=== PATIENT | male | born 1970 ===

== ENCOUNTER 2017-07-05 18:14 | Emergency (ER) | payer OTHER ==
[2017-07-05 18:14] VITALS: BMI 38.0
[2017-07-05 18:23] VITALS: PULSE 92; RESP 18; TEMP 98.8; O2SAT 99
--- NOTE | 2017-07-05 18:47 | ED PDOC ---
HPI: Wound Care - HPI Time Seen by Provider: 07/05/17 18:26 Chief Complaint (Nursing): Abnormal Skin Integrity Chief Complaint (Provider): abscess History Per: Patient Exam Limitations: no limitations Additional Complaint(s): 46yo M in ED for eval of abscess to right sided inner groin x couple of days state that he tried to "pop it" himself and did a sitz bath however it did not drain, was more painful and began developing chills. no fever. Past Medical History Reviewed: Historical Data, Nursing Documentation, Vital Signs Vital Signs: Last Vital Signs Temp 98.8 F 07/05/17 18:21 Pulse 92 H 07/05/17 18:21 Resp 18 07/05/17 18:21 BP Pulse Ox 99 07/05/17 18:21 - Medical History PMH: Diabetes (type II), Fractures (fx to right ankle this year around December 2014 ), HTN, Hypercholesterolemia, Hyperlipidemia Denies: Arthritis, CHF, COPD, HIV, Hypothyroidism, Chronic Kidney Disease, Rheumatoid Arthritis - Surgical History Surgical History: Denies: CABG - Family History Family History: States: Unknown Family Hx - Home Medications Home Medications: Ambulatory Orders Medication Instructions Recorded Atorvastatin [Lipitor] 10 mg PO DAILY 03/04/15 Lisinopril 2.5 mg PO DAILY 03/04/15 Metformin HCl [Metformin] 850 mg PO DAILY #30 tab 08/06/15 Cephalexin [Keflex] 500 mg PO TID 11/10/15 Oxycodone HCl/Acetaminophen 5 - 325 mg PO Q6 PRN 11/10/15 [Percocet 5-325 mg Tablet] Ibuprofen [Motrin] 600 mg PO TID 7 Days tab 12/02/15 Amoxicillin/Clavulanate [Augmentin 1 tab PO BID #14 tab 03/18/16 875 MG-125 MG] Sulfamethoxazole/Trimethoprim 1 tab PO BID #14 tab 03/18/16 [Bactrim DS 800 mg-160 mg] oxyCODONE/Acetaminophen [Percocet 1 ea PO Q6H PRN #8 tab 03/18/16 5/325 mg Tab] Amoxicillin/Clavulanate [Augmentin 1 tab PO BID 7 Days tab 07/09/16 875 MG-125 MG Tab] Sulfamethoxazole/Trimethoprim 1 tab PO BID 7 Days tab 07/09/16 [Bactrim DS 800 mg-160 mg] Sulfamethoxazole/Trimethoprim 1 tab PO BID #14 tab 07/05/17 [Bactrim DS 800 mg-160 mg] - Allergies Allergies/Adverse Reactions: Allergies Allergy/AdvReac Type Severity Reaction Status Date / Time No Known Allergies Allergy Verified 12/02/15 09:26 Review of Systems ROS Statement: Except As Marked, All Systems Reviewed And Found Negative Constitutional: Positive for: Chills. Negative for: Fever Genitourinary Male: Positive for: Other (groin pain) Physical Exam - Reviewed Nursing Documentation Reviewed: Yes Vital Signs Reviewed: Yes - Physical Exam Appears: Positive for: Well, Non-toxic, No Acute Distress Skin: Positive for: Normal Color, Warm, DRY Cardiovascular/Chest: Positive for: Regular Rate, Rhythm Respiratory: Positive for: CNT, Normal Breath Sounds Extremity: Positive for: Other (right inner groin-lesion 2x4 flucutant tendern erythema no surronding erythema. ) Neurologic/Psych: Positive for: Alert, Oriented - ECG O2 Sat by Pulse Oximetry: 99 Procedure: Wound Repair - Time Performed Time Performed: 18:48 - Time Out Time Out: Side verified (PT signed consent. made aware of scar potential. agrees to abscess drainage. ), Site verified, Patient ID confirmed, Sterile procedures obs. - Consent Obtained Consent obtained: Written - Performed by Performed by: Mid-level Provider - Indications Indication(s):: Other (abscess) - Patient tolerated procedure Patient Tolerated Procedure:: Well (#11 blade used .5cm incision created at [facility] blood/pus draiange>5cc drainage. no complications. packing placed.) Medical Decision Making Medical Decision Making: pt advised to have f.u in 3 days for packing removal . rx for bactirm and advised to use warm compress to area. VS stable. Disposition - Clinical Impression Clinical Impression: Abscess - Patient ED Disposition Is Patient to be Admitted: No Counseled Patient/Family Regarding: Diagnosis, Need For Followup, Rx Given - Disposition Referrals: [facility] [Outside] Disposition: Routine/Home Disposition Time: 18:51 Condition: STABLE Prescriptions: Sulfamethoxazole/Trimethoprim [Bactrim DS 800 mg-160 mg] 1 tab PO BID #14 tab Instructions: Abscess Incision and Drainage (ED), Abscess (ED) Forms: [employer] ED School/Work Excuse
[2017-07-05 19:04] VITALS: BP 138/88
== END 2017-07-05 19:04 | disposition home or self-care (01) ==
LOC: H.ER 18:14
DX: L02.214 Cutaneous abscess of groin (principal); E11.9 Type 2 diabetes mellitus without complications; E78.00 Pure hypercholesterolemia, unspecified; I10 Essential (primary) hypertension; Z79.84 Long term (current) use of oral hypoglycemic drugs

== ENCOUNTER 2018-08-16 10:37 | Emergency (ER) | payer SELFPAY ==
[2018-08-16 10:37] VITALS: BMI 38.0
[2018-08-16 10:52] VITALS: TEMP 98.3
--- NOTE | 2018-08-16 11:54 | ED PDOC ---
HPI: Back Time Seen by Provider: 08/16/18 11:20 Chief Complaint (Nursing): Back Pain Chief Complaint (Provider): Back Pain History Per: Patient History/Exam Limitations: no limitations Onset/Duration Of Symptoms: Days (x1 year) Current Symptoms Are (Timing): Constant Additional Complaint(s): Chinedu Gillespie Jr is a 48 year old male with a past medical history of HTN and diabetes, who presents to the emergency department complaining of right sided back pain that is non-radiating, constant for x1 year. Patient states that he goes to clinic and that he has never mentioned it to the doctor because he thought it would go away by itself. He states his next appointment is September 10, 2018. Patient denies nausea, vomiting, urinary symptoms including hematuria and burning sensation on urinating, fever, chills, rash or cough. PMD: no provider Past Medical History Reviewed: Historical Data, Nursing Documentation, Vital Signs Vital Signs: Last Vital Signs Temp 98.3 F 08/16/18 10:50 Pulse 67 08/16/18 10:50 Resp 18 08/16/18 10:50 BP 125/86 08/16/18 10:50 Pulse Ox 95 08/16/18 10:50 - Medical History PMH: Diabetes (type II), Fractures (fx to right ankle this year around December 2014), HTN, Hypercholesterolemia, Hyperlipidemia Denies: Arthritis, CHF, COPD, HIV, Hypothyroidism, Chronic Kidney Disease, Rheumatoid Arthritis - Surgical History Surgical History: Denies: CABG - Family History Family History: States: Unknown Family Hx - Social History Current smoker - smoking cessation education provided: Yes Alcohol: Occasional Drugs: Denies - Home Medications Home Medications: Ambulatory Orders Medication Instructions Recorded Atorvastatin [Lipitor] 10 mg PO DAILY 03/04/15 Lisinopril 2.5 mg PO DAILY 03/04/15 Metformin HCl [Metformin] 850 mg PO DAILY #30 tab 08/06/15 Cephalexin [Keflex] 500 mg PO TID 11/10/15 Oxycodone HCl/Acetaminophen 5 - 325 mg PO Q6 PRN 11/10/15 [Percocet 5-325 mg Tablet] Ibuprofen [Motrin] 600 mg PO TID 7 Days tab 12/02/15 Amoxicillin/Clavulanate [Augmentin 1 tab PO BID #14 tab 03/18/16 875 MG-125 MG] Sulfamethoxazole/Trimethoprim 1 tab PO BID #14 tab 03/18/16 [Bactrim DS 800 mg-160 mg] oxyCODONE/Acetaminophen [Percocet 1 ea PO Q6H PRN #8 tab 03/18/16 5/325 mg Tab] Amoxicillin/Clavulanate [Augmentin 1 tab PO BID 7 Days tab 07/09/16 875 MG-125 MG Tab] Sulfamethoxazole/Trimethoprim 1 tab PO BID 7 Days tab 07/09/16 [Bactrim DS 800 mg-160 mg] Sulfamethoxazole/Trimethoprim 1 tab PO BID #14 tab 07/05/17 [Bactrim DS 800 mg-160 mg] Cyclobenzaprine [Cyclobenzaprine 10 mg PO TID #30 tab 08/16/18 HCl] Naproxen [Naprosyn] 500 mg PO BID PRN #20 tablet 08/16/18 - Allergies Allergies/Adverse Reactions: Allergies Allergy/AdvReac Type Severity Reaction Status Date / Time No Known Allergies Allergy Verified 08/16/18 10:59 Review of Systems ROS Statement: Except As Marked, All Systems Reviewed And Found Negative Constitutional: Negative for: Fever, Chills Respiratory: Negative for: Cough Gastrointestinal: Negative for: Nausea, Vomiting, Constipation Genitourinary Male: Negative for: Dysuria, Frequency, Incontinence, Hematuria, Other (burning sensation on urination) Musculoskeletal: Positive for: Back Pain Skin: Negative for: Rash Physical Exam - Reviewed Nursing Documentation Reviewed: Yes Vital Signs Reviewed: Yes - Physical Exam Appears: Positive for: Non-toxic, No Acute Distress Head Exam: Positive for: ATRAUMATIC, NORMOCEPHALIC Skin: Positive for: Normal Color, Warm, Dry Eye Exam: Positive for: Normal appearance, EOMI, PERRL ENT: Positive for: Normal ENT Inspection Neck: Positive for: Normal, Painless ROM, Supple Cardiovascular/Chest: Positive for: Regular Rate, Rhythm. Negative for: Murmur Respiratory: Positive for: Normal Breath Sounds. Negative for: Respiratory Distress Gastrointestinal/Abdominal: Positive for: Normal Exam, Soft. Negative for: Tenderness Back: Positive for: Other (some local right sided palpable tenderness to lower back) Extremity: Positive for: Normal ROM. Negative for: Pedal Edema, Deformity, Swelling Neurologic/Psych: Positive for: Alert, Oriented. Negative for: Motor/Sensory Deficits - ECG O2 Sat by Pulse Oximetry: 95 (RA) Pulse Ox Interpretation: Normal - Radiology X-Ray: Viewed By Me X-Ray Interpretation: No Acute Disease (straightening on lateral c/w spasm) Medical Decision Making Medical Decision Making: Time: 1130 Impression: lower back pain, mostly muscular. --Rule out stones and infections Plan: --ED urine dipstick --Lumbar spine x-ray Scribe Attestation: Documented by Taiwo Melvin, acting as a scribe for Ceci Camejo MD. Provider Scribe Attestation: All medical record entries made by the Scribe were at my direction and perso giovany dictated by me. I have reviewed the chart and agree that the record accurately reflects my personal performance of the history, physical exam, medical decision making, and the department course for this patient. I have also personally directed, reviewed, and agree with the discharge instructions and disposition. Disposition - Clinical Impression Clinical Impression: Muscle spasm - Patient ED Disposition Is Patient to be Admitted: No Doctor Will See Patient In The: Office Counseled Patient/Family Regarding: Diagnosis, Need For Followup, Rx Given - Disposition Referrals: [facility] [Outside] [facility] [Outside] Disposition: Routine/Home Disposition Time: 12:00 Condition: STABLE Prescriptions: Cyclobenzaprine [Cyclobenzaprine HCl] 10 mg PO TID #30 tab Naproxen [Naprosyn] 500 mg PO BID PRN #20 tablet PRN Reason: Pain, Moderate (4-7) Forms: [facility] ED School/Work Excuse - POA Present On Arrival: None
[2018-08-16 12:47] VITALS: BP 120/82; PULSE 70; RESP 16; O2SAT 96
--- NOTE | 2018-08-16 12:49 | RAD ---
Date of service: 08/16/2018 PROCEDURE: Radiographs of the Lumbar Spine. HISTORY: back pain right - x 1 year COMPARISON: No prior. FINDINGS: BONES: Normal alignment. No listhesis. No fracture. DISC SPACES: Unremarkable. OTHER FINDINGS: None. IMPRESSION: Unremarkable radiographs of the lumbar spine.
== END 2018-08-16 12:48 | disposition home or self-care (01) ==
LOC: H.ER 10:37
DX: M62.838 Other muscle spasm (principal); I10 Essential (primary) hypertension; F17.210 Nicotine dependence, cigarettes, uncomplicated

== ENCOUNTER 2018-09-08 02:53 | Emergency (ER) | payer SELFPAY ==
[2018-09-08 02:53] VITALS: BMI 38.0
[2018-09-08 03:17] VITALS: BP 140/80; PULSE 77; TEMP 98.3
--- NOTE | 2018-09-08 03:37 | ED PDOC ---
HPI: CCC, URI, Sore Throat Time Seen by Provider: 09/08/18 03:15 Chief Complaint (Nursing): ENT Problem Chief Complaint (Provider): congestion History Per: Patient History/Exam Limitations: no limitations Onset/Duration Of Symptoms: Hrs Current Symptoms Are (Timing): Still Present Additional Complaint(s): 48 y/o male presents for evaluation of nasal congestion x 1 hour. Patient states he woke up from his sleep unable to breathe through his nose due to congestion and then he began to panic and developed palpitations and sweats. Patient states this has happened before when he gets panicked, denies palpitations currently. Denies fever, headache, dizziness, sore throat, ear pain, chest pain, shortness of breath, leg pain/swelling. Past Medical History Reviewed: Historical Data, Nursing Documentation, Vital Signs Vital Signs: Last Vital Signs Temp 98.3 F 09/08/18 03:15 Pulse 77 09/08/18 03:15 Resp 18 09/08/18 03:15 BP 140/80 09/08/18 03:15 Pulse Ox 95 09/08/18 03:15 - Medical History PMH: Diabetes (type II), Fractures (fx to right ankle this year around December 2014), HTN, Hypercholesterolemia, Hyperlipidemia Denies: Arthritis, CHF, COPD, HIV, Hypothyroidism, Chronic Kidney Disease, Rheumatoid Arthritis - Surgical History Surgical History: No Surg Hx Denies: CABG - Family History Family History: States: Unknown Family Hx - Home Medications Home Medications: Ambulatory Orders Medication Instructions Recorded Atorvastatin [Lipitor] 10 mg PO DAILY 03/04/15 Lisinopril 2.5 mg PO DAILY 03/04/15 Metformin HCl [Metformin] 850 mg PO DAILY #30 tab 08/06/15 Cephalexin [Keflex] 500 mg PO TID 11/10/15 Oxycodone HCl/Acetaminophen 5 - 325 mg PO Q6 PRN 11/10/15 [Percocet 5-325 mg Tablet] Ibuprofen [Motrin] 600 mg PO TID 7 Days tab 12/02/15 Amoxicillin/Clavulanate [Augmentin 1 tab PO BID #14 tab 03/18/16 875 MG-125 MG] Sulfamethoxazole/Trimethoprim 1 tab PO BID #14 tab 03/18/16 [Bactrim DS 800 mg-160 mg] oxyCODONE/Acetaminophen [Percocet 1 ea PO Q6H PRN #8 tab 03/18/16 5/325 mg Tab] Amoxicillin/Clavulanate [Augmentin 1 tab PO BID 7 Days tab 07/09/16 875 MG-125 MG Tab] Sulfamethoxazole/Trimethoprim 1 tab PO BID 7 Days tab 07/09/16 [Bactrim DS 800 mg-160 mg] Sulfamethoxazole/Trimethoprim 1 tab PO BID #14 tab 07/05/17 [Bactrim DS 800 mg-160 mg] Cyclobenzaprine [Cyclobenzaprine 10 mg PO TID #30 tab 08/16/18 HCl] Naproxen [Naprosyn] 500 mg PO BID PRN #20 tablet 08/16/18 - Allergies Allergies/Adverse Reactions: Allergies Allergy/AdvReac Type Severity Reaction Status Date / Time No Known Allergies Allergy Verified 08/16/18 10:59 Review of Systems ROS Statement: Except As Marked, All Systems Reviewed And Found Negative ENT: Positive for: Nose Congestion Physical Exam - Reviewed Nursing Documentation Reviewed: Yes Vital Signs Reviewed: Yes - Physical Exam Appears: Positive for: Well, Non-toxic, No Acute Distress Head Exam: Positive for: ATRAUMATIC, NORMAL INSPECTION, NORMOCEPHALIC Skin: Positive for: Normal Color Eye Exam: Positive for: Normal appearance ENT: Positive for: Nasal Congestion Cardiovascular/Chest: Positive for: Regular Rate, Rhythm Respiratory: Positive for: Normal Breath Sounds Gastrointestinal/Abdominal: Positive for: Normal Exam Back: Positive for: Normal Inspection Extremity: Positive for: Normal ROM Neurologic/Psych: Positive for: Alert, Oriented (x3) - ECG ECG: Positive for: Viewed By Me (reviewed by ED attending) ECG Rhythm: Positive for: Sinus Rhythm O2 Sat by Pulse Oximetry: 95 - Progress ED Course And Treament: -ekg -accucheck Patient educated on findings, discharged with instructions to use OTC nasal decongestant sprays Advised to lower heat in apartment or use de-humidifier Follow up PMD within 2-3 days Return precautions given Disposition - Clinical Impression Clinical Impression: Nasal congestion - Patient ED Disposition Is Patient to be Admitted: No Counseled Patient/Family Regarding: Studies Performed, Diagnosis, Need For Followup - Disposition Disposition: Routine/Home Disposition Time: 04:03 Condition: IMPROVED Instructions: Triamcinolone (Nasal), Fluticasone (Nasal) Forms: [employer] ([place])
[2018-09-08 04:34] VITALS: RESP 17
[2018-09-08 04:37] VITALS: O2SAT 100
--- NOTE | 2018-09-12 06:13 | CARD ---
APPROVED REPORT Date of service: 09/08/2018 EKG Measurement Heart [id number] <Conclusion> Normal sinus rhythm Normal ECG
== END 2018-09-08 04:10 | disposition home or self-care (01) ==
LOC: H.ER 02:53
DX: R09.81 Nasal congestion (principal); E11.9 Type 2 diabetes mellitus without complications; E78.00 Pure hypercholesterolemia, unspecified; I10 Essential (primary) hypertension; Z79.84 Long term (current) use of oral hypoglycemic drugs

== ENCOUNTER 2018-09-15 23:39 | Emergency (ER) | payer SELFPAY ==
[2018-09-15 23:40] VITALS: BMI 38.0
[2018-09-15 23:51] VITALS: BP 159/99; PULSE 79; RESP 18; TEMP 98.1; O2SAT 97
--- NOTE | 2018-09-16 01:44 | ED PDOC ---
HPI: Skin/Bite Injury Time Seen by Provider: 09/16/18 00:41 Chief Complaint (Nursing): Abnormal Skin Integrity Chief Complaint (Provider): Abnormal Skin Integrity History Per: Patient History/Exam Limitations: no limitations Onset/Duration Of Symptoms: Days Current Symptoms Are (Timing): Still Present Additional Complaint(s): 48 y/o male with a PMHx of DM presents to the ED for evaluation of an abnormal skin integrity to the right armpit. Patient reports of having boils to the genital area and leg in the past and was prescribed Augmentin for treatment. Patient reports of taking Augmentin for current pain with no relief of symptoms Patient describes current abnormality as painful ranging as a 10/10. Otherwise, patient denies fevers. PMD: [facility] Past Medical History Reviewed: Historical Data, Nursing Documentation, Vital Signs Vital Signs: Last Vital Signs Temp 98.1 F 09/15/18 23:49 Pulse 79 09/15/18 23:49 Resp 18 09/15/18 23:49 BP 159/99 H 09/15/18 23:49 Pulse Ox 97 09/15/18 23:49 - Medical History PMH: Diabetes (type II), Fractures (fx to right ankle this year around December 2014), HTN, Hypercholesterolemia, Hyperlipidemia Denies: Arthritis, CHF, COPD, HIV, Hypothyroidism, Chronic Kidney Disease, Rheumatoid Arthritis - Surgical History Surgical History: No Surg Hx Denies: CABG - Family History Family History: States: Unknown Family Hx - Home Medications Home Medications: Ambulatory Orders Medication Instructions Recorded Atorvastatin [Lipitor] 10 mg PO DAILY 03/04/15 Lisinopril 2.5 mg PO DAILY 03/04/15 Metformin HCl [Metformin] 850 mg PO DAILY #30 tab 08/06/15 Cephalexin [Keflex] 500 mg PO TID 11/10/15 Oxycodone HCl/Acetaminophen 5 - 325 mg PO Q6 PRN 11/10/15 [Percocet 5-325 mg Tablet] Ibuprofen [Motrin] 600 mg PO TID 7 Days tab 12/02/15 Amoxicillin/Clavulanate [Augmentin 1 tab PO BID #14 tab 03/18/16 875 MG-125 MG] Sulfamethoxazole/Trimethoprim 1 tab PO BID #14 tab 03/18/16 [Bactrim DS 800 mg-160 mg] oxyCODONE/Acetaminophen [Percocet 1 ea PO Q6H PRN #8 tab 03/18/16 5/325 mg Tab] Amoxicillin/Clavulanate [Augmentin 1 tab PO BID 7 Days tab 07/09/16 875 MG-125 MG Tab] Sulfamethoxazole/Trimethoprim 1 tab PO BID 7 Days tab 07/09/16 [Bactrim DS 800 mg-160 mg] Sulfamethoxazole/Trimethoprim 1 tab PO BID #14 tab 07/05/17 [Bactrim DS 800 mg-160 mg] Cyclobenzaprine [Cyclobenzaprine 10 mg PO TID #30 tab 08/16/18 HCl] Naproxen [Naprosyn] 500 mg PO BID PRN #20 tablet 08/16/18 Clindamycin [Cleocin] 300 mg PO TID 10 Days cap 09/16/18 traMADol [Ultram] 50 mg PO TID #12 tab 09/16/18 - Allergies Allergies/Adverse Reactions: Allergies Allergy/AdvReac Type Severity Reaction Status Date / Time No Known Allergies Allergy Verified 09/15/18 23:48 Review of Systems ROS Statement: Except As Marked, All Systems Reviewed And Found Negative Constitutional: Negative for: Fever Skin: Positive for: Other (possible boil) Physical Exam - Reviewed Nursing Documentation Reviewed: Yes Vital Signs Reviewed: Yes - Physical Exam Appears: Positive for: No Acute Distress Skin: Negative for: Normal Color (2 cm rubbery mass in the right armpit with minimal erythema and no fluctuance. ) - ECG O2 Sat by Pulse Oximetry: 97 (RA) Pulse Ox Interpretation: Normal Medical Decision Making Medical Decision Making: Time: 0103 A/P: Less likely abscess, more likely node with possible infection. -- Will change antibiotics -- Will provide patient with pain relief. -- Discussed narcotic precautions with patient. Patient warned about possible addictive potentials. Patient understood to take narcotics as necessary. Patient additionally advised to follow up in two days at the clinic or here for re-evaluation. -- Patient very well appearing and stable for discharge home. -- Cleocin 300 mg PO -- Cleocin 300 mg PO -- Tramadol 50 mg PO Scribe Attestation: Documented by Chen Corona, acting as a scribe for Wu Giordano MD. Provider Scribe Attestation: All medical record entries made by the Scribe were at my direction and personally dictated by me. I have reviewed the chart and agree that the record accurately reflects my personal performance of the history, physical exam, medical decision making, and the department course for this patient. I have also personally directed, reviewed, and agree with the discharge instructions and disposition. Disposition - Clinical Impression Clinical Impression: Mass of axilla - Disposition Referrals: [facility] [Outside] Disposition: Routine/Home Disposition Time: 01:03 Condition: GOOD Prescriptions: Clindamycin [Cleocin] 300 mg PO TID 10 Days cap traMADol [Ultram] 50 mg PO TID #12 tab Instructions: Opioids for Short-Term Treatment of Pain, Taking Narcotics Safely Forms: [employer] ([place]ican)
== END 2018-09-16 01:05 | disposition home or self-care (01) ==
LOC: H.ER 23:39
DX: R22.31 Localized swelling, mass and lump, right upper limb (principal); E11.9 Type 2 diabetes mellitus without complications; E78.00 Pure hypercholesterolemia, unspecified; I10 Essential (primary) hypertension; Z79.84 Long term (current) use of oral hypoglycemic drugs